=== PATIENT | male | born 1950 | race Caucasian/White ===

== ENCOUNTER → 2019-09-14 | Outpatient (CLI) | payer MEDICARE ==
--- NOTE | 2019-09-14 16:55 | REP ---
Clinical: Pain. Technique: AP, lateral, bilateral oblique and sunrise views of the right knee. Findings: Osseous structures, joint spaces, and surrounding soft tissues are normal for age. No overt osteoarthritic degenerative changes are appreciated. No acute fracture or dislocation. No effusion. Impression: Normal age-appropriate right knee radiographs. Electronically Signed by Stoney Alexander MD 09/14/2019 03:54 P
== END ==
LOC: M WUC 15:22
PROVIDERS: ATTEND Physician Assistant
DX: M25.561 Pain in right knee (principal)

== ENCOUNTER → 2020-11-25 | Outpatient (CLI) | payer MEDICARE ==
--- NOTE | 2020-11-25 17:11 | REP ---
INDICATION: LEFT SHOULDER PAIN. COMPARISON: None. TECHNIQUE: There are four views. FINDINGS: The acromioclavicular and glenohumeral articulations are unremarkable. There are no calcifications. There is no fracture or dislocation. IMPRESSION: Negative plain film study of the left shoulder. <Electronically signed by Tyron Napier > 11/25/20 1523
== END ==
LOC: M SOG 13:22
PROVIDERS: ATTEND Orthopaedic Surgery Sports Medicine
DX: M75.42 Impingement syndrome of left shoulder (principal)

== ENCOUNTER → 2021-01-30 | Outpatient (REF) | payer MEDICARE | LOC: M SFHCLERA 15:54 | PROVIDERS: ATTEND Nurse Practitioner Family | DX: J06.9 Acute upper respiratory infection, unspecified (principal) | CPT/HCPCS: 87426; 87804; G0463; U0003 ==

== ENCOUNTER → 2021-08-11 | Outpatient (CLI) | payer MEDICARE | LOC: M SOG 11:16 | PROVIDERS: ATTEND Orthopaedic Surgery Sports Medicine | DX: M25.561 Pain in right knee (principal); M17.11 Unilateral primary osteoarthritis, right knee ==

== ENCOUNTER → 2021-09-15 | Outpatient (CLI) | payer MEDICARE ==
--- NOTE | 2021-09-15 10:05 | REP ---
INDICATION: MENISCUS DERANGEMENT. COMPARISON: None. TECHNIQUE: Sagittal spin-echo proton density, T2 STIR and T2 FLASH. Coronal spin-echo proton density and fat suppressed proton density. Axial fat suppressed proton density. FINDINGS: There is complex grade 3 signal change seen in the posterior horn of the medial meniscus. The anterior horn is within normal limits. The anterior and posterior horns of the lateral meniscus are within normal limits. The anterior and posterior cruciate ligaments are intact, however, T2 hyper signal is seen throughout the anterior cruciate ligament. The quadriceps and patellar tendons are intact. The medial and lateral collateral ligaments are intact. The medial and lateral patellar retinacula are intact. There is thinning and irregularity seen involving all articular cartilages particularly the patellar articular cartilage and the cartilaginous surface of the trochlear groove. There is a slight joint effusion. There is no Schneider's cyst. IMPRESSION: 1. There is a complex tear of the posterior horn of the medial meniscus. 2. Tricompartmental chondromalacia as described above. 3. There is a slight joint effusion. 4. There is evidence of a slight ACL sprain which may be chronic. <Electronically signed by Santiago Sanchez > 09/15/21 1006
== END ==
LOC: M PLAIMG 07:51
PROVIDERS: ATTEND Orthopaedic Surgery Sports Medicine
DX: M23.331 Other meniscus derangements, other medial meniscus, right knee (principal); S83.231A Complex tear of medial meniscus, current injury, right knee, initial encounter; M94.261 Chondromalacia, right knee; Y92.9 Unspecified place or not applicable; Y93.9 Activity, unspecified; Y99.9 Unspecified external cause status

== ENCOUNTER → 2022-06-02 | Outpatient (CLI) | payer MEDICARE | LOC: M SOG 08:28 | PROVIDERS: ATTEND Physician Assistant | DX: M77.11 Lateral epicondylitis, right elbow (principal) ==

== ENCOUNTER → 2022-06-18 | Outpatient (CLI) | payer MEDICARE | LOC: M RAD 14:38 | PROVIDERS: ATTEND Family Medicine | DX: S32.010A Wedge compression fracture of first lumbar vertebra, initial encounter for closed fracture (principal); R10.31 Right lower quadrant pain; X58.XXXA Exposure to other specified factors, initial encounter; Y92.9 Unspecified place or not applicable; Y93.9 Activity, unspecified; Y99.9 Unspecified external cause status ==

== ENCOUNTER → 2023-02-04 | Outpatient (CLI) | payer MEDICARE | LOC: M PLAIMG 09:20 | PROVIDERS: ATTEND Orthopaedic Surgery Hand Surgery | DX: M75.102 Unspecified rotator cuff tear or rupture of left shoulder, not specified as traumatic (principal) ==

== ENCOUNTER → 2023-07-12 | Outpatient (REF) | payer MEDICARE ==
[2023-07-12 17:52] LABS: ALBUMIN 3.7 G/DL (3.2-5.2); ALKALINE PHOSPHATASE 55 U/L (46-116); ALT/SGPT 12 U/L (7.0-40); AST/SGOT 16 U/L (<34); BILIRUBIN,TOTAL 0.3 MG/DL (0.3-1.2); BLOOD UREA NITROGEN 14 MG/DL (9-23); CALCIUM LEVEL 9.4 MG/DL (8.3-10.6); CARBON DIOXIDE LEVEL 30 MMOL/L (20-31); CHLORIDE LEVEL 100 MMOL/L (98-107); CREATININE FOR GFR 0.91 MG/DL (0.70-1.30); GLOMERULAR FILTRATION RATE > 60.0 (>42); GLUCOSE, FASTING 97 MG/DL (74-106); POTASSIUM SERUM 4.8 MMOL/L (3.5-5.1); SODIUM LEVEL 135 MMOL/L (136-145); TOTAL PROTEIN 6.2 G/DL (5.7-8.2)
[2023-07-12 17:55] LABS: BASO # 0.1 10^3/uL (0.0-0.2); BASO % 1.1 % (0.0-1.0); EOS # 0.4 10^3/uL (0.0-0.5); EOS % 6.6 % (0.0-3.0); HEMATOCRIT 41.9 % (42.0-52.0); HEMOGLOBIN 13.4 g/dl (13.5-17.5); LYMPH # 1.2 10^3/uL (1.5-5.0); LYMPH % 19.1 % (24.0-44.0); MEAN CORPUSCULAR VOLUME 90.7 fl (80.0-96.0); MONO # 0.6 10^3/uL (0.0-0.8); NEUTROPHILS % 63.9 % (36.0-66.0); PLATELET COUNT, AUTOMATED 268 10^3/uL (150-450); RED BLOOD COUNT 4.62 10^6/uL (4.30-6.10); WHITE BLOOD COUNT 6.3 10^3/uL (4.0-10.0)
== END ==
LOC: M LABWUC 16:14
PROVIDERS: ATTEND Family Medicine
DX: Z01.818 Encounter for other preprocedural examination (principal)

== ENCOUNTER → 2023-07-17 | Outpatient (CLI) | payer MEDICARE | LOC: M RAD 14:46 | PROVIDERS: ATTEND Orthopaedic Surgery Hand Surgery | DX: M25.511 Pain in right shoulder (principal); S46.911A Strain of unspecified muscle, fascia and tendon at shoulder and upper arm level, right arm, initial encounter; X58.XXXA Exposure to other specified factors, initial encounter; Y92.9 Unspecified place or not applicable; Y93.9 Activity, unspecified; Y99.9 Unspecified external cause status ==

== ENCOUNTER 2023-12-15 07:02 | Inpatient (IN) | payer MEDICARE ==
[~2023-12-15] VITALS: Ht 167.6 cm; Wt 81.2 kg
[2023-12-15] MEDS: LR 1,000 ML IV SCH ×3 (06:35→15:20)
[~2023-12-15 07:02] MED LIST: AMLO1TAB25 PO; B-122500 PO; BRIM0.2S13 OU; GABA-282 PO; IRON65TA2 PO; LEVO75TA4 PO; LISI40TA4 PO; MAGN400C PO; SIMV40TA20 PO; TIMO5DRO5 OU
[2023-12-15] MEDS: dexAMETHasone 10MG/1ML VIAL PRES.FREE PN ONE (07:15)
[2023-12-15] MEDS: LIDOCAINE 1% SDV 5ML VIAL PN ONE (07:15)
[2023-12-15] MEDS: ROPIvacaine 0.5% 30ML VIAL PN ONE (07:15)
[2023-12-15] MEDS ORDERED: SUGAMMADEX SODIUM 500 MG/5 ML VIAL (BRIDION) As Ordered ONE (08:03)
[2023-12-15] MEDS ORDERED: MIDAZOLAM INJ 2MG/2ML VIAL As Ordered ONE (08:03)
[2023-12-15] MEDS ORDERED: fentaNYL 100 MCG/2 ML INJECTION As Ordered ONE (08:03)
[2023-12-15] MEDS ORDERED: ROCURONIUM BROMIDE 50MG/5ML VIAL As Ordered ONE (08:03)
[2023-12-15] MEDS ORDERED: ONDANSETRON 4MG 2ML VIAL As Ordered ONE (08:03)
[2023-12-15] MEDS ORDERED: LIDOCAINE 2% 100MG/5ML SDV (FOR ANES.) As Ordered ONE (08:03)
[2023-12-15] MEDS ORDERED: propofoL 200 MG/20 ML VIAL As Ordered ONE (08:04)
[2023-12-15] MEDS ORDERED: ACETAMINOPHEN 1000MG 100ML IV BAG As Ordered ONE (08:04)
[2023-12-15] MEDS ORDERED: EPINEPHrine INJ 1 MG/ML 1ML AMP As Ordered ONE (08:10)
[2023-12-15] MEDS: MIDAZOLAM INJ 2MG/2ML VIAL IV PRN (08:12)
[2023-12-15] MEDS: fentaNYL 100 MCG/2 ML INJECTION IV PRN (08:12)
[2023-12-15] MEDS ORDERED: LACRILUBE (AKWA TEARS) OPHTH OINT 3.5GM As Ordered ONE (08:19)
[2023-12-15] MEDS ORDERED: PHENYLEPHRINE 10MG/ML 1ML VIAL As Ordered ONE (08:22)
[2023-12-15] MEDS: EPINEPHrine INJ 1 MG/ML 1ML AMP PN ONE (08:50)
[2023-12-15] MEDS: ceFAZolin 2 GM/D5W 50 ML IV BAG As Ordered ONE (09:00)
[2023-12-15] MEDS: TRANEXAMIC ACID 100 MG/ML 10ML VIAL As Ordered ONE (09:11)
[2023-12-15] MEDS ORDERED: HYDROmorphone HCL 2MG/ML 1ML VIAL As Ordered ONE (09:13)
[2023-12-15] MEDS: LIDOCAINE W/EPINEPHRINE 1% 20ML VIAL As Ordered ONE (09:20)
[2023-12-15] MEDS ORDERED: ePHEDrine SULFATE 25 MG/5 ML(5MG/ML) SYRINGE As Ordered ONE (09:39)
[2023-12-15] MEDS ORDERED: KETOROLAC 60MG 2ML VIAL As Ordered ONE (09:54)
[2023-12-15] MEDS: VANCOMYCIN 1000MG/20ML VIAL As Ordered ONE (10:45)
[2023-12-15] MEDS ORDERED: fentaNYL 100 MCG/2 ML INJECTION IV PRN ×2 (11:05→17:45)
[2023-12-15] MEDS ORDERED: HYDROMORPHONE HCL 0.5 MG/ 0.5 ML SYRINGE IV PRN (11:05)
[2023-12-15] MEDS ORDERED: oxyCODONE 5MG TAB PO PRN ×2 (11:05→17:45)
[2023-12-15] MEDS ORDERED: PERCOCET 5MG/325MG TAB PO PRN (15:20)
[2023-12-15] MEDS ORDERED: ACETAMINOPHEN TAB 650MG DOSE (2X325MG) PO PRN (15:20)
[2023-12-15] MEDS ORDERED: ONDANSETRON 4MG 2ML VIAL IV PRN ×2 (15:20→17:45)
[2023-12-15] MEDS ORDERED: GLYCOPYRROLATE INJ 0.2 MG/ML 2 ML VIAL As Ordered ONE (15:37)
[2023-12-15] MEDS ORDERED: NEOSTIGMINE 10MG 10ML VIAL As Ordered ONE (15:37)
[2023-12-15] MEDS ORDERED: PHENYLephrine 500MCG 5ML (100MCG/ML) SYRINGE As Ordered ONE (16:30)
[2023-12-15] MEDS ORDERED: VANCOMYCIN 500MG/10ML VIAL As Ordered ONE (17:08)
[2023-12-15] MEDS ORDERED: MORPHINE 2 MG/ML 1ML VIAL IV PRN (17:45)
[2023-12-15 18:40] VITALS: BP 149/81; TEMP 96.2; O2SAT 99
[2023-12-15 19:25] VITALS: BP 135/72; TEMP 96.8; O2SAT 99
[2023-12-15 20:00] VITALS: BP 133/86; TEMP 97.3; O2SAT 99
[2023-12-15] MEDS: ceFAZolin SOD 2 GM in IV 1 EA IV SCH (20:05)
[2023-12-15] MEDS: amLODIPine 5 MG TAB PO ONE (20:11)
[2023-12-15] MEDS: PERCOCET 5MG/325MG TAB PO ONE (20:11)
[2023-12-15] MEDS: SIMVASTATIN 40 MG TAB PO SCH (20:12)
[2023-12-15] MEDS: TIMOLOL MALEATE 0.5% OPHTH SOLN 5 ML OU SCH (20:37)
[2023-12-15] MEDS: BRIMONIDINE 0.1% OPHTH SOLN 5ML OU SCH (20:37)
[2023-12-15 21:00] VITALS: BP 132/73; TEMP 97.3; O2SAT 99
[2023-12-15] MEDS ORDERED: CYAN-11 PO (21:58)
[2023-12-15] MEDS ORDERED: TERB250T91 PO (21:58)
[2023-12-15 22:00] VITALS: BP 136/65; TEMP 96.9; O2SAT 95
[2023-12-15] MEDS ORDERED: HOME MED LIST COMPLETE! XX SCH (22:00)
[2023-12-16 00:02] VITALS: BP 135/73; TEMP 97.8; O2SAT 95
[2023-12-16] MEDS: PERCOCET 5MG/325MG TAB PO PRN (02:26)
[2023-12-16] MEDS: LEVOTHYROXINE 75MCG TABLET (0.075MG) PO SCH (05:36)
[2023-12-16] MEDS: ASPIRIN 81MG ENTERIC TABLET PO SCH (06:20)
[2023-12-16] MEDS ORDERED: PERC5TAB12 PO (07:55)
[2023-12-16] MEDS ORDERED: MIRA3350 PO (07:56)
[2023-12-16] MEDS ORDERED: SENO8.6T10 PO (07:56)
[2023-12-16 08:00] VITALS: BP 121/58; TEMP 99.8; O2SAT 94
[2023-12-16 08:27] LABS: BASO % 0.1 % (0.0-1.0); HEMATOCRIT 33.4 % (42.0-52.0); HEMOGLOBIN 10.9 g/dl (13.5-17.5); LYMPH # 0.9 10^3/uL (1.5-5.0); LYMPH % 7.4 % (24.0-44.0); MEAN CORPUSCULAR HEMOGLOBIN 28.7 pg (27.0-33.0); MEAN CORPUSCULAR HGB CONC 32.6 g/dl (32.0-36.5); MEAN CORPUSCULAR VOLUME 87.9 fl (80.0-96.0); MONO # 0.9 10^3/uL (0.0-0.8); MONO % 7.6 % (2.0-8.0); NEUTROPHILS # 10.2 10^3/uL (1.5-8.5); NEUTROPHILS % 84.6 % (36.0-66.0); PLATELET COUNT, AUTOMATED 237 10^3/uL (150-450); WHITE BLOOD COUNT 12.1 10^3/uL (4.0-10.0)
[2023-12-16 08:39] LABS: PROTHROMBIN TIME 12.9 SECONDS (12.5-14.5)
[2023-12-16] MEDS: KETOROLAC 30 MG/ML 1ML VIAL IV ONE (08:48)
[2023-12-16 08:49] VITALS: BP 121/58
[2023-12-16] MEDS: lisinopriL 40MG TAB PO SCH (08:49)
[2023-12-16] MEDS: CYANOCOBALAMIN 500 MCG TAB PO SCH (08:49)
[2023-12-16] MEDS: PERCOCET 5MG/325MG TAB PO ONE (08:50)
[2023-12-16 08:51] LABS: ALBUMIN 3.1 G/DL (3.2-5.2); ALKALINE PHOSPHATASE 44 U/L (46-116); ALT/SGPT 10 U/L (7.0-40); AST/SGOT 15 U/L (<34); BILIRUBIN,TOTAL 0.7 MG/DL (0.3-1.2); BLOOD UREA NITROGEN 15 MG/DL (9-23); CALCIUM LEVEL 8.6 MG/DL (8.3-10.6); CARBON DIOXIDE LEVEL 27 MMOL/L (20-31); CHLORIDE LEVEL 99 MMOL/L (98-107); CREATININE FOR GFR 0.97 MG/DL (0.70-1.30); GLOMERULAR FILTRATION RATE > 60.0 (>42); GLUCOSE, FASTING 118 MG/DL (74-106); PHOSPHORUS LEVEL 2.9 MG/DL (2.4-5.1); POTASSIUM SERUM 4.6 MMOL/L (3.5-5.1); SODIUM LEVEL 132 MMOL/L (136-145); TOTAL PROTEIN 5.2 G/DL (5.7-8.2)
[2023-12-16] MEDS ORDERED: ASPI81TA26 PO (13:04)
== END 2023-12-16 11:18 | disposition home or self-care (01) | DRG 483 ==
LOC: M SDC 07:02 → M ED INP 15:38 → M MS4PR 18:40
PROVIDERS: ADMIT General Practice; ATTEND General Practice
PROC: 0RWK0J7 Revision of Synthetic Substitute in Left Shoulder Joint, Glenoid Surface, Open Approach (ICD-10-PCS; 2023-12-15)
PROC: 0RRK0JZ Replacement of Left Shoulder Joint with Synthetic Substitute, Open Approach (ICD-10-PCS; principal; 2023-12-15 08:30)
DX: M19.012 Primary osteoarthritis, left shoulder (principal); T84.028A Dislocation of other internal joint prosthesis, initial encounter; Z96.612 Presence of left artificial shoulder joint; I10 Essential (primary) hypertension; E78.00 Pure hypercholesterolemia, unspecified; E03.9 Hypothyroidism, unspecified; H40.9 Unspecified glaucoma; G89.18 Other acute postprocedural pain; Z79.890 Hormone replacement therapy; Z79.899 Other long term (current) drug therapy; Z85.818 Personal history of malignant neoplasm of other sites of lip, oral cavity, and pharynx; Y83.1 Surgical operation with implant of artificial internal device as the cause of abnormal reaction of the patient, or of later complication, without mention of misadventure at the time of the procedure

== ENCOUNTER → 2023-12-24 | Outpatient (CLI) | payer MEDICARE ==
[~2023-12-24] MED LIST changes: +ASPI81TA26 PO; +CYAN-11 PO; +MIRA3350 PO; +PERC5TAB12 PO; +SENO8.6T10 PO; +TERB250T91 PO
== END ==
LOC: M SOG 09:27
PROVIDERS: ATTEND Physician Assistant
DX: Z47.89 Encounter for other orthopedic aftercare (principal)

== ENCOUNTER → 2024-01-27 | Outpatient (CLI) | payer MEDICARE | LOC: M SOG 08:00 | PROVIDERS: ATTEND Physician Assistant | DX: Z96.612 Presence of left artificial shoulder joint (principal) ==

== ENCOUNTER → 2024-03-13 | Outpatient (CLI) | payer MEDICARE | LOC: M SOG 08:13 | PROVIDERS: ATTEND Physician Assistant | DX: Z96.612 Presence of left artificial shoulder joint (principal) ==

== ENCOUNTER → 2024-08-18 | Outpatient (CLI) | payer MEDICARE ==
[~2024-08-18] MED LIST changes: +GABA-1172 PO; -GABA-282 PO
== END ==
LOC: M SOG 07:58
PROVIDERS: ATTEND Physician Assistant
DX: M25.512 Pain in left shoulder (principal); M12.812 Other specific arthropathies, not elsewhere classified, left shoulder; Z96.612 Presence of left artificial shoulder joint

== ENCOUNTER → 2024-12-08 | Outpatient (CLI) | payer MEDICARE | LOC: M SOG 07:44 | PROVIDERS: ATTEND Physician Assistant | DX: M25.511 Pain in right shoulder (principal); Z98.890 Other specified postprocedural states ==

== ENCOUNTER → 2025-01-12 | Outpatient (CLI) | payer MEDICARE | LOC: M RAD 12:20 | PROVIDERS: ATTEND Family Medicine | DX: I65.23 Occlusion and stenosis of bilateral carotid arteries (principal) ==

== ENCOUNTER 2025-04-16 15:56 | Emergency (ER) | payer OTHER, MEDICARE ==
[~2025-04-16] VITALS: Ht 167.6 cm; Wt 76.1 kg
[~2025-04-16 15:56] MED LIST changes: +LISI40TA10 PO; -LISI40TA4 PO
[2025-04-16] MEDS ORDERED: ISOVUE-370 76% 100 ML VIAL As Ordered ONE (16:40)
[2025-04-16 17:43] LABS: BASO # 0.1 10^3/uL (0.0-0.2); BASO % 0.5 % (0.0-1.0); EOS # 0.4 10^3/uL (0.0-0.5); EOS % 2.2 % (0.0-3.0); LYMPH # 1.0 10^3/uL (1.5-5.0); LYMPH % 6.1 % (24.0-44.0); MONO # 0.8 10^3/uL (0.0-0.8); MONO % 5.2 % (2.0-8.0); NEUTROPHILS # 13.7 10^3/uL (1.5-8.5); NEUTROPHILS % 85.5 % (36.0-66.0); PLATELET COUNT, AUTOMATED 243 10^3/uL (150-450)
[2025-04-16 17:55] LABS: INR 0.91
[2025-04-16 18:10] LABS: ETHYL ALCOHOL (ETHANOL) < 0.003 % (0.000-0.010)
[2025-04-16 18:12] LABS: ALT/SGPT 19 U/L (7.0-40); AST/SGOT 21 U/L (<34)
[2025-04-16 18:21] LABS: AMPHETAMINES LEVEL URINE NEGATIVE (NEGATIVE); BARBITURATES URINE NEGATIVE (NEGATIVE); BENZODIAZEPINES URINE NEGATIVE (NEGATIVE); CANNABINOIDS URINE NEGATIVE (NEGATIVE); COCAINE METABOLITE URINE NEGATIVE (NEGATIVE); METHADONE URINE NEGATIVE (NEGATIVE); OPIATES URINE NEGATIVE (NEGATIVE); PHENCYCLIDINE URINE NEGATIVE (NEGATIVE)
[2025-04-16] MEDS: PERCOCET 5MG/325MG TAB PO ONE (19:25)
[2025-04-16] MEDS ORDERED: PERC5TAB12 PO (19:51)
[2025-04-16 20:23] VITALS: BP 159/69; TEMP 98.2; O2SAT 98
== END 2025-04-16 20:29 | disposition home or self-care (01) ==
LOC: M ED 15:56
DX: S22.010A Wedge compression fracture of first thoracic vertebra, initial encounter for closed fracture (principal); Y92.9 Unspecified place or not applicable; Y93.9 Activity, unspecified; Y99.9 Unspecified external cause status; V49.40XA Driver injured in collision with unspecified motor vehicles in traffic accident, initial encounter; N40.0 Benign prostatic hyperplasia without lower urinary tract symptoms; I10 Essential (primary) hypertension; Z79.1 Long term (current) use of non-steroidal anti-inflammatories (NSAID); Z79.899 Other long term (current) drug therapy
CPT/HCPCS: 36415; 70450; 71045; 71260; 72072; 72125; 72128; 74177; 80047; 80076; 80307; 82077; 82150; 83605; 83690; 85025; 85610; 85730; 86850; 86900; 86901; 93041; 94760; 99285; Q9967

== ENCOUNTER → 2025-05-21 | Outpatient (CLI) | payer OTHER, MEDICARE | LOC: M SOG 07:48 | PROVIDERS: ATTEND Physician Assistant | DX: M25.511 Pain in right shoulder (principal) ==

== ENCOUNTER → 2025-06-01 | Outpatient (CLI) | payer OTHER, MEDICARE | LOC: M RAD 12:01 | PROVIDERS: ATTEND Physician Assistant | DX: S22.000K Wedge compression fracture of unspecified thoracic vertebra, subsequent encounter for fracture with nonunion (principal); S22.010A Wedge compression fracture of first thoracic vertebra, initial encounter for closed fracture; Y93.9 Activity, unspecified; Y92.9 Unspecified place or not applicable ==

== ENCOUNTER → 2025-08-22 | Outpatient (CLI) | payer MEDICARE | LOC: M PLAIMG 07:11 | PROVIDERS: ATTEND Physician Assistant | DX: M19.011 Primary osteoarthritis, right shoulder (principal); M75.51 Bursitis of right shoulder; M25.711 Osteophyte, right shoulder; M94.211 Chondromalacia, right shoulder; M75.21 Bicipital tendinitis, right shoulder; S43.431A Superior glenoid labrum lesion of right shoulder, initial encounter; X58.XXXA Exposure to other specified factors, initial encounter; Y92.9 Unspecified place or not applicable; Y93.9 Activity, unspecified; Y99.9 Unspecified external cause status ==

== ENCOUNTER → 2025-08-27 | Outpatient (REF) | payer MEDICARE ==
[2025-08-27 17:36] LABS: BASO # 0.1 10^3/uL (0.0-0.2); BASO % 1.2 % (0.0-1.0); EOS # 0.5 10^3/uL (0.0-0.5); EOS % 5.9 % (0.0-3.0); LYMPH # 1.3 10^3/uL (1.5-5.0); LYMPH % 16.4 % (24.0-44.0); MONO # 0.6 10^3/uL (0.0-0.8); MONO % 7.4 % (2.0-8.0); NEUTROPHILS # 5.3 10^3/uL (1.5-8.5); NEUTROPHILS % 68.8 % (36.0-66.0); PLATELET COUNT, AUTOMATED 297 10^3/uL (150-450)
[2025-08-27 17:42] LABS: ALT/SGPT 17 U/L (7.0-40); AST/SGOT 19 U/L (<34); CALCIUM LEVEL 9.3 MG/DL (8.3-10.6); CARBON DIOXIDE LEVEL 31 MMOL/L (20-31); CHLORIDE LEVEL 100 MMOL/L (98-107); CHOLESTEROL LEVEL 171 MG/DL (<200); CHOLESTEROL RISK RATIO 2.79 (<5); CREATININE FOR GFR 0.81 MG/DL (0.70-1.30); GLOMERULAR FILTRATION RATE > 90.0 (>42); LDL CHOLESTEROL 91.8 MG/DL (<100); NON-HDL-C 109.8 MG/DL; POTASSIUM SERUM 4.7 MMOL/L (3.5-5.1); PSA SCREENING 1.87 NG/ML (< 4.00); SODIUM LEVEL 136 MMOL/L (136-145); TRIGLYCERIDES LEVEL 90 MG/DL (<150)
== END ==
LOC: M SFHCLERA 11:10
PROVIDERS: ATTEND Family Medicine
DX: Z00.00 Encounter for general adult medical examination without abnormal findings (principal); I10 Essential (primary) hypertension; E78.2 Mixed hyperlipidemia; Z12.5 Encounter for screening for malignant neoplasm of prostate; E03.9 Hypothyroidism, unspecified
CPT/HCPCS: 80053; 80061; 84443; 85025; G0103